=== PATIENT | male | born 1945 | race Caucasian/White ===

== ENCOUNTER 2025-02-18 10:00 | Outpatient (CLI) | payer MEDICARE, BC ==
[~2025-02-18 10:00] MED LIST: APIX5TAB3 PO; ATOR10TA70 PO; AZEL205.2 BOTHNARES; CHLO25TA11 PO; DULO60CA65 PO; FLUT1BLS16 INH; INSU100I31 SQ; NEMO30PE SQ; POTA8CAP20 PO
[2025-02-18 10:41] LABS: CREATININE 1.51 MG/DL (0.60-1.10); TOTAL CARBON DIOXIDE 30.0 MMOL/L (24-32); eGFR 45 ML/MIN
[2025-02-18 10:52] LABS: MEAN PLATELET VOLUME 8.0 FL (7.4-10.4); RED CELL DISTRIBUTION WIDTH 14.4 % (11.5-14.5)
--- NOTE | 2025-02-18 20:02 | RADIOLOGY REPORT ---
CT POST WATCHMAN INDICATION: PRESENCE OF OTHER CARDIAC IMPLANTS AND GRAFTS TECHNIQUE: CT cardiac imaging for pulmonary vein analysis has been obtained. 3- D, MIP, and MPR images obtained. All CT scans at this facility use dose modulation, iterative reconstruction, and/or weight based dosing when appropriate to reduce radiation dose to as low as reasonably achievable. 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 On delayed images no significant evidence of contrast leakage surrounding the implant. CARDIAC CHAMBERS: No intracardiac thrombus. Question basal septal hypertrophy measuring up to 18 mm which May narrow of the left ventricular outflow tract. OTHER: Normal caliber of thoracic aorta and central pulmonary arteries. Inconspicuous peribronchial thickening along the bilateral lower lobes. Coronary artery calcifications. IMPRESSION: Successful occlusion without tuan-implant leakage. Question basal septal hypertrophy measuring up to 18 mm which May narrow of the left ventricular outflow tract.
== END 2025-02-18 23:59 | disposition home or self-care (01) ==
LOC: RAD 10:00
PROVIDERS: ATTEND Student in an Organized Health Care Education/Training Program
DX: I25.10 Atherosclerotic heart disease of native coronary artery without angina pectoris (principal); Z95.818 Presence of other cardiac implants and grafts
CPT/HCPCS: 75572; 80053; 85025; Q9967